=== PATIENT | male | born 1965 | race Caucasian/White ===

== ENCOUNTER 2016-09-22 11:30 | Inpatient (IN) ==
--- NOTE | 2016-09-21 21:20 | Discharge Summary ---
<Hillary Larson E - Last Filed: 09/21/16 21:28> Date of Encounter: 09/21/16 - Discharge Diagnosis (1) Arthritis of left hip Priority: Primary Status: Chronic (2) Atrial fibrillation Priority: Secondary Status: Chronic Qualifiers: Atrial fibrillation type: unspecified Qualified Code(s): I48.91 - Unspecified atrial fibrillation (3) Chronic pain Priority: Secondary Status: Chronic Comments: Patient takes [place] 10/325mg QID. Patient desires to trial Oxycodone 5-10mg Q6 hours PRN for post-operative pain. Patient to hold [place] while taking Oxycodone. Qualifiers: Chronic pain type: other chronic pain Qualified Code(s): G89.29 - Other chronic pain (4) COPD (chronic obstructive pulmonary disease) Priority: Secondary Status: Chronic Qualifiers: COPD type: unspecified COPD Qualified Code(s): J44.9 - Chronic obstructive pulmonary disease, unspecified (5) Tobacco use Priority: Secondary Status: Chronic (6) HTN (hypertension) Priority: Secondary Status: Chronic Qualifiers: Hypertension type: unspecified Qualified Code(s): I10 - Essential (primary ) hypertension (7) GERD (gastroesophageal reflux disease) Priority: Secondary Status: Chronic Qualifiers: Esophagitis presence: esophagitis presence not specified Qualified Code(s) : K21.9 - Gastro-esophageal reflux disease without esophagitis (8) BMI (body mass index) 20.0-29.9 Priority: Secondary Status: Chronic - Discharge Medications Home Medications: Aspirin Enteric Coated [Aspirin EC] 325 mg PO QAM #21 tablet. 09/21/16 [Rx] OxyCODONE Immed Rel [Roxicodone 5 MG] 5 - 10 mg PO Q6HR PRN #40 tablet 09/21/16 [Rx] Albuterol Sulfate [Ventolin Hfa] 2 puff IH Q4H PRN 09/22/16 [History] Amiodarone [Cordarone] 200 mg PO DAILY 09/22/16 [History] Amlodipine Besylate 10 mg PO DAILY 09/22/16 [History] Aspirin [Ecotrin] 325 mg PO DAILY 09/22/16 [History] Atorvastatin [Lipitor] 40 mg PO HS 09/22/16 [History] Budesonide/Formoterol 80/4.5 [Symbicort 80/4.5] 2 puff IH BID 09/22/16 [History ] Gabapentin [Neurontin] 800 mg PO TID 09/22/16 [History] HYDROcodone/Acet 10/325 mg [[place] 10-325 mg] 1 tab PO Q6H PRN 09/22/16 [History] Ipratropium/Albuterol Sulfate [Combivent Respimat Inhal [place]] 1 puff IH QID 02/27 [History] Metoprolol [Lopressor] 25 mg PO BID 09/22/16 [History] Omeprazole [PriLOSEC] 20 mg PO DAILY 09/22/16 [History] Allergies/Adverse Reactions: Allergies No Known Allergies Allergy (Verified 09/10/16 07:50) Primary care physician: Rick Pacheco - Patient Status Disposition: Home Health Service Condition: Good - Discharge Instructions Follow Up With: Rick Pacheco MD [Primary Care Provider] - - Hospital Course Hospital course: Mr. Villela is a 51 year old male - Time Spent with Patient Total time spent providing and/or coordinating discharge services: - VTE Documentation of Mechanical Device: Venous foot pump, device <Ifeanyi Middleton - Last Filed: 09/23/16 08:21> Date of Encounter: 09/23/16 Time of Encounter: 08:20 - Discharge Diagnosis (1) Arthritis of left hip Priority: Primary Status: Chronic (2) COPD (chronic obstructive pulmonary disease) Priority: Secondary Status: Chronic Qualifiers: COPD type: unspecified COPD Qualified Code(s): J44.9 - Chronic obstructive pulmonary disease, unspecified (3) Atrial fibrillation Priority: Secondary Status: Chronic Qualifiers: Atrial fibrillation type: unspecified Qualified Code(s): I48.91 - Unspecified atrial fibrillation (4) Tobacco use Priority: Secondary Status: Chronic (5) HTN (hypertension) Priority: Secondary Status: Chronic Qualifiers: Hypertension type: unspecified Qualified Code(s): I10 - Essential (primary ) hypertension (6) Alcohol dependence Priority: Secondary Status: Chronic Qualifiers: Substance use status: uncomplicated Qualified Code(s): F10.20 - Alcohol dependence, uncomplicated (7) GERD (gastroesophageal reflux disease) Priority: Secondary Status: Chronic Qualifiers: Esophagitis presence: esophagitis presence not specified Qualified Code(s) : K21.9 - Gastro-esophageal reflux disease without esophagitis (8) BMI (body mass index) 20.0-29.9 Priority: Secondary Status: Chronic (9) Status post total hip replacement, left Priority: Primary Status: Acute (10) Chronic pain Status: Chronic Qualifiers: Chronic pain type: other chronic pain Qualified Code(s): G89.29 - Other chronic pain Primary care physician: Rick Pacheco - Patient Status Functional capacity at discharge: uses cane/walker Overall status at discharge: patient is progressing back to baseline - Hospital Course Hospital course: Mr. Villela is a 51 year old male Status post total hip replacement The patient had an uneventful postoperative course. They received antibiotics and physical therapy and were discharged in stable condition. There will follow-up in the office in 2 weeks. Aspirin DVT prophylaxis - Time Spent with Patient Total time spent providing and/or coordinating discharge services:
--- NOTE | 2016-09-21 21:27 | Physician Discharge Referral ---
Home Health/Hosp Referral Info Transfer to: Home Health Attending Provider: Dr. Ifeanyi Middleton - Diagnosis (1) Status post total hip replacement, left Priority: Primary Status: Acute (2) Arthritis of left hip Priority: Secondary Status: Chronic (3) Atrial fibrillation Priority: Secondary Status: Chronic (4) Chronic pain Priority: Secondary Status: Chronic (5) COPD (chronic obstructive pulmonary disease) Priority: Secondary Status: Chronic (6) Tobacco use Priority: Secondary Status: Chronic (7) HTN (hypertension) Priority: Secondary Status: Chronic (8) GERD (gastroesophageal reflux disease) Priority: Secondary Status: Chronic (9) BMI (body mass index) 20.0-29.9 Priority: Secondary Status: Chronic - Respiratory Orders Smoking Cessation: Smoking cessation has been advised. For more information, call the [employer] Tobacco Quit Line at 2-746-IXWS-NOW. - Dressing/Wound Care Site: left hip Type of Dressing/Treatments w/Frequency: Opsite placed. Keep dressing intact until first follow up appointment. If > 50% saturated, notify office, remove dressing and place appropriate dressing back in place. Dressing is water resistant, not water-proof. OK to shower, but do not get dressing wet. - Diet/Nutrition Diet/Nutrition Orders: Regular - Activity Activity Orders: Ambulate, Chair, Walker - Services Needed Following services are medically necessary services: Nursing, Physical Therapy, Occupational Therapy Other Treatments: Total Hip replacement Precautions Apply cold therapy wrap 3-6x/day for 20 minutes at a time. Encourage ambulation throughout the day and incentive spirometer 10x/hour. Elevate affected extremity as tolerated. Brace: Wear hip abduction pillow when laying down or sleeping - Transfer Medications Home Medications: Aspirin Enteric Coated [Aspirin EC] 325 mg PO QAM #21 tablet. 09/21/16 [Rx] OxyCODONE Immed Rel [Roxicodone 5 MG] 5 - 10 mg PO Q6HR PRN #40 tablet 09/21/16 [Rx] Albuterol Sulfate [Ventolin Hfa] 2 puff IH Q4H PRN 09/22/16 [History] Amiodarone [Cordarone] 200 mg PO DAILY 09/22/16 [History] Amlodipine Besylate 10 mg PO DAILY 09/22/16 [History] Aspirin [Ecotrin] 325 mg PO DAILY 09/22/16 [History] Atorvastatin [Lipitor] 40 mg PO HS 09/22/16 [History] Budesonide/Formoterol 80/4.5 [Symbicort 80/4.5] 2 puff IH BID 09/22/16 [History ] Gabapentin [Neurontin] 800 mg PO TID 09/22/16 [History] HYDROcodone/Acet 10/325 mg [[place] 10-325 mg] 1 tab PO Q6H PRN 09/22/16 [History] Ipratropium/Albuterol Sulfate [Combivent Respimat Inhal [place]] 1 puff IH QID 02/27 [History] Metoprolol [Lopressor] 25 mg PO BID 09/22/16 [History] Omeprazole [PriLOSEC] 20 mg PO DAILY 09/22/16 [History] Allergies/Adverse Reactions: Allergies No Known Allergies Allergy (Verified 09/10/16 07:50) Certification: Further, I certify that my clinical findings support that this patient is homebound (i.e. absences from home require considerable and taxing effort and are for medical reasons or evangelical services or infrequently or short duration when for other reasons) because: Homebound Reason: Post-surgery restriction and or conditions limit ability to leave home Attestation: My signature below is to certify that this patient is under my care and that I, or nurse practitioner, or physician dental office assistant working with me, has a face-to- face encounter with this patient.
[2016-09-22] MEDS ORDERED: CeFAZolin Pre 2,000 MG/100 ML 2,000 MG/100 ML BAG IVPB ONE (11:49)
[2016-09-22] MEDS ORDERED: Albuterol 2.5 MG/3 ML NEBULIZER IH ONE (11:49)
[2016-09-22] MEDS ORDERED: Lidocaine -MPF 1% 2 ML VIAL ID ONE (11:49)
[2016-09-22] MEDS ORDERED: Ringers Solution, Lactated 1,000 ML IVC SCH ×2 (12:00→17:00)
[2016-09-22] MEDS ORDERED: Famotidine 20 MG/2 ML VIAL IVP ONE (12:12)
[2016-09-22] MEDS ORDERED: Gabapentin 300 MG CAPSULE PO ONE (12:13)
--- NOTE | 2016-09-22 12:19 | History & Physical Report ---
Date of Encounter: 09/22/16 Time of Encounter: 12:19 24 Hour HP Update - Instructions Instructions: If the History and Physical is less than 30 days old and was completed prior to A.M. admission and or procedure and has NOT been updated on calendar day of procedure please complete this update prior to performing procedure. - Update Patient reports changes in Medical Condition: No Changes in examination, assessment, or condition: No Changes in Medication: No Preop tests/diagnostics Reviewed: Yes Surgery Remains Indicated: Yes Consent for Planned Operative Procedure(s) Verified: Yes - Pre-Operative Checklist Preoperative Checklist Indicated: No Prophylactic Antibiotic Ordered: Yes Is VTE Prophylaxis Indicated?: Yes
--- NOTE | 2016-09-22 12:22 | Anesthesia Evaluation PreOp ---
Date of Encounter: 09/22/16 Time of Encounter: 12:20 - Past History Planned Operation: Left THR Cardiac History: HTN, Hyperlipidemia, Arrhythmia (Hx AFib treated with meds, took Cordarone today) Pulmonary History: Smoker, COPD TECHNOLOGIST DEVELOPMENT History: Denies Any Significant HX Other Medical History: Denies Any Significant HX, GERD Anesthesia History: No Prior Anesthetic Complications Alcohol Use: heavy, recent Drug use: none Medications and Allergies Aspirin Enteric Coated [Aspirin EC] 325 mg PO DAILY #21 tablet. 05/09/16 [Rx] OxyCODONE Immed Rel [Roxicodone 5 MG] 5 - 10 mg PO Q6HR PRN #40 tablet 05/09/16 [Rx] Aspirin Enteric Coated [Aspirin EC] 325 mg PO QAM #21 tablet. 09/21/16 [Rx] OxyCODONE Immed Rel [Roxicodone 5 MG] 5 - 10 mg PO Q6HR PRN #40 tablet 09/21/16 [Rx] Allergies No Known Allergies Allergy (Verified 09/10/16 07:50) - Meds/Allergy Pre-op Review Medications Reviewed: Yes Allergies Reviewed: Yes Beta Blockers on Current Med List: Yes (Took metoprolol today 0700) Anesthesia Results - Labs Laboratory Tests 09/10/16 09/10/16 08:13 08:13 Hgb 14.8 Hct 43.7 Plt Count 265 Sodium 139 Potassium 4.3 BUN 12 Creatinine 1.09 - Imaging EKG: report reviewed (SR) Anesthesia Exam O2 Sat Height 1.83 m Height 1.83 m Height 1.83 m Weight 99.79 kg Weight 99.79 kg Weight 99.79 kg O2 Sat by Pulse Oximetry 97 O2 Sat by Pulse Oximetry 97 O2 Sat by Pulse Oximetry 97 Vital Signs Temp Pulse Resp BP Pulse Ox 98.6 F 59 18 149/82 97 09/22/16 11:40 09/22/16 11:40 09/22/16 11:40 09/22/16 11:40 09/22/16 11:40 Height: 6'0 Weight: 220 lbs NPO (# of Hours): MN Pain Scale: 0 - HEENT Pupil (Motor): Pupils equal, EOMI Mallampati: III Teeth: Normal Oral Opening: Less than or equal to 3 - TECHNOLOGIST DEVELOPMENT LOC: Oriented TECHNOLOGIST DEVELOPMENT Motor: Normal RUE, Normal LUE, Normal RLE, Normal LLE, Normal Face TECHNOLOGIST DEVELOPMENT Sensory: Normal: RUE, LUE, RLE, LLE, Face - Cardiac Rhythm: Regular Murmur: None JVD: No Carotid Bruit: No - Pulmonary Breath Sounds: bilateral Clear Respiratory Effort: Symmetrical Anesthesia Assess/Plan ASA Score: 3 (HTN AFib COPD Gerd) Modified [place] Scale for Level of Consciousness: Cooperative, oriented, and tranquil Anesthetic Plan: General, Regional Monitoring Plan: Standard Monitors Recovery Plan: PACU (Discussed GA and RA, agrees to proceed)
[2016-09-22] MEDS ORDERED: *HR* FentaNYL (PF) 100 MCG/2 ML VIAL ONE (12:42)
[2016-09-22] MEDS ORDERED: *HR* Midazolam HCl 2 MG/2 ML VIAL ONE (12:42)
[2016-09-22] MEDS ORDERED: ROPIVACAINE HCL/PF 0.5% 30 ML VIAL ONE (12:43)
[2016-09-22] MEDS ORDERED: *HR* Propofol 200 MG/20 ML VIAL IVP ONE ×2 (12:45→13:27)
[2016-09-22] MEDS ORDERED: Ondansetron 4 MG/2 ML VIAL ONE (12:45)
[2016-09-22] MEDS ORDERED: Lidocaine -MPF 4% 5 ML AMPUL ONE (12:45)
[2016-09-22] MEDS ORDERED: Dexamethasone 4 MG/ML VIAL ONE (12:45)
[2016-09-22] MEDS ORDERED: *HR* Succinylcholine 200 MG/10 ML VIAL IVP ONE (12:45)
[2016-09-22] MEDS ORDERED: Lidocaine -MPF 2% 2 ML VIAL ONE (12:45)
[2016-09-22] MEDS ORDERED: Acetaminophen IV 1,000 MG/100 ML INFUS..BTL ONE (12:55)
--- NOTE | 2016-09-22 13:09 | Anesthesia Procedures ---
Date of Encounter: 09/22/16 Time of Encounter: 12:20 Procedures: Anesthesia - Nerve Block Procedure Date: 09/22/16 Time: 13:00 Pre-op Diagnosis: Left Hip OA Surgical Procedure: Left THR Checklist: Correct Patient Identifier Correct side: Left Blood Thinner: No Monitor Applied: EKG, BP, Pulse Oximetry Supplemental Oxygen via Nasal Cannula (L/min): 2 Sedation: Versed (mg): 2 Sedation: Fentanyl (mcg): 100 Indication: Post Op Analgesia Pre-op Neuro Deficits: No Block Type: Other (Fascia Iliaca) Catheter placed: No Depth at skin (cm): 2 Sterile Technique: Yes Ultrasound used: Yes Anatomy identified: Yes Visual spread of Local: Yes Neuro Stimulation: No Blood on Needle Aspiration: No Smooth Injection of Local: Yes Pain with Injection of Local: No Prep: Chlorhexadine Needle: 22 x 50 mm Stimuplex Local: Ropivacaine (0.25), Other (Dexamethasone 20 mg) Volume (cc): 60 Number of Attempts: 1 Complications: None/effective block Vitals: Vital Signs/O2 Sat/Glucose, Most Current Temp Pulse Resp BP Pulse Ox 09/22/16 12:48 57 18 153/77 97 09/22/16 11:50 98.6 F 59 18 149/82 97 09/22/16 11:40 98.6 F 59 18 149/82 97
[2016-09-22] MEDS ORDERED: *HR* Promethazine 25 MG/ML VIAL IVP PRN (13:40)
[2016-09-22] MEDS ORDERED: Propofol 500 MG/50 ML INFUS..BTL ONE (13:46)
--- NOTE | 2016-09-22 14:15 | Orthopedic Operative Note ---
Date of procedure: 09/22/16 Pre-op diagnosis: Left hip arthritis Post-op diagnosis: same Procedure: Procedure: Left Total Hip Replacment Estimated blood loss: 200 cc Hardware: Metal and polyethylene replacement. Biomet DM Cup: 58 G7 fin cup Femoral size 15 echo full profile lateralized stem Head: +6 head with Milagro Procedural Notes: Degenerative changes grade 4 femoral head acetabular socket. Operative procedure: The patient was brought to the operating room and placed on the operating room table. After general anesthesia was administered the patient was placed in the lateral decubitus position with the operative leg up. All pressure points were padded appropriately and the head was stabilized in the neutral position. The operative extremity was prepped and draped in the sterile surgical fashion patient received IV antibiotic prior to skin incision. A standard posterior approach is made to the operative hip, the incision was made through the skin and subcutaneous tissue hemostasis was obtained with Bovie cautery. Using careful sharp dissection the fascia was identified and incised exposing the external rotators. The external rotators were released off the greater trochanter and tagged with #2 FiberWire suture. The capsule was T'd open and the hip was brought into internal rotation. Patient noted to have grade 4 arthritic changes femoral head. The femoral neck cut was made at the appropriate level. An anterior capsulotomy was performed for the anterior retractor. Soft tissues removed from the acetabulum. Patient noted to have grade 4 arthritic changes acetabulum. Acetabulum was first reamed medially, and then reamed in 15 degrees of anteversion and 45 degrees off the horizontal. It was reamed up to the appropriate size 58 The appropriate-sized 58 acetabular cup was impacted in place in 15 degrees of anteversion and 45 degrees off the horizontal. This had good fit and fixation. The hip was brought back in to internal rotation and prepared with the steam box operator followed by the canal finder followed by broaching process in 20 degrees anteversion. It was broached up to the appropriate size 15 The femoral implant was impacted in place in 20 degrees of anteversion. Trial reduction found the hip to be stable with +6 head and Milagro. The trials were removed and the real implants were impacted in place. The hip was reduced, patient had apparent equal leg lengths. The hip had excellent stability with forward flexion to 90 degrees adduction of 30 degrees and internal rotation of 60 degrees. The hip had no shuck. The hips after 2 minutes with a Betadine saline solution. It was irrigated out with 2 L of pulse irrigation. The HIGINIO Larson close the hip. Fascia was closed with a running #2 PDS suture. The deep tissue was irrigated and closed deep with #1 PDS suture superficially with 0 PDS suture and skin was closed with Dermabond and skin mary. The patient was placed in a sterile dressing and abduction pillow. The patient was extubated and transferred to the recovery room in stable condition. Anesthesia: GETA Surgeon: Ifeanyi Middleton Condition: stable Disposition: PACU
[2016-09-22] MEDS ORDERED: *HR* HYDROmorphone 2 MG/ML SYRINGE ONE (14:26)
[2016-09-22] MEDS ORDERED: EPHEDrine 50 MG/ML VIAL ONE (14:37)
[2016-09-22] MEDS: *HR* HYDROmorphone (PF) 1 MG/ML SYRINGE IVP PRN ×6 (15:04→19:31)
[2016-09-22 15:30] LABS: Hematocrit 42.4 % (37.5-50.1); Hemoglobin 13.9 g/dL (12.9-16.9)
--- NOTE | 2016-09-22 15:40 | Anesthesia Evaluation Post Op ---
Date of Encounter: 09/22/16 Time of Encounter: 15:39 - Vital Signs Vital Signs: Vital Signs - Last 8 Hours Temp Pulse Resp BP Pulse Ox 09/22/16 15:34 57 14 149/93 97 09/22/16 15:24 97.7 F 54 16 160/102 94 09/22/16 15:14 54 16 155/101 95 09/22/16 15:04 55 16 138/80 95 09/22/16 14:54 97.3 F L 53 20 117/70 100 09/22/16 13:06 55 16 148/87 98 09/22/16 12:48 57 18 153/77 97 09/22/16 11:50 98.6 F 59 18 149/82 97 09/22/16 11:40 98.6 F 59 18 149/82 97 Intake and Output 09/21/16 09/22/16 09/22/16 23:59 07:59 15:59 Output Total 200 / 200 Balance -200 / -200 Output: Estimated Blood Loss 200 / 200 Other: Weight 99.79 kg Patient Weight 09/22/16 23:59 Weight 99.79 kg - Lungs Lungs: Clear Ascult./Percussion - Airway Airway: Non-obstructed - Cardiovascular Regular Rate, Baseline Rhythm - Mental Status Mental Status: Alert & Oriented, Answers Appropriately - Pain Pain Scale: 0 Pain Scale used: Numeric (1 - 10) - Nausea Vomiting Nausea Vomiting: Not Present - Hydration Hydration: Tolerates oral liquids - Discharge PostOp Status: Transfer Patient to floor
[2016-09-22] MEDS ORDERED: Temazepam 15 MG CAPSULE PO PRN (17:00)
[2016-09-22] MEDS ORDERED: *HR* OxyCODONE Immed Rel 5 MG TABLET PO PRN (17:00)
[2016-09-22] MEDS ORDERED: ceFAZolin 2,000 MG in D5% in Water 100 ML IVPB SCH (17:00)
[2016-09-22] MEDS ORDERED: Naloxone 0.4 MG/ML INJ IVP PRN (17:00)
[2016-09-22] MEDS ORDERED: MOM Conc 10 ML UD.LIQ PO PRN (17:00)
[2016-09-22] MEDS ORDERED: Sennosides 8.6 MG TABLET PO PRN (17:00)
[2016-09-22] MEDS ORDERED: Ondansetron 4 MG/2 ML VIAL IVP PRN (17:00)
[2016-09-22] MEDS: *HR* Enoxaparin 30 MG/0.3 ML SYRINGE SQ SCH (17:36)
[2016-09-22] MEDS: Ascorbic Acid 500 MG TABLET PO SCH (17:36)
[2016-09-22] MEDS ORDERED: *HR* Enoxaparin 30 MG/0.3 ML SYRINGE SQ SCH (18:00)
[2016-09-22] MEDS: *HR* OxyCODONE Immed Rel 5 MG TABLET PO PRN (21:49)
[2016-09-22] MEDS: ceFAZolin 2,000 MG in D5% in Water 100 ML IVPB SCH (21:50)
[2016-09-22] MEDS: Ipratropium 1 PUFF INHALER IH SCH (22:50)
[2016-09-23] MEDS: *HR* HYDROmorphone (PF) 1 MG/ML SYRINGE IVP PRN ×2 (00:20→04:10)
[2016-09-23] MEDS: *HR* OxyCODONE Immed Rel 5 MG TABLET PO PRN ×3 (02:00→10:49)
[2016-09-23] MEDS: Ipratropium 1 PUFF INHALER IH SCH ×2 (04:28→10:36)
[2016-09-23 06:13] LABS: Hematocrit 38.7 % (37.5-50.1); Hemoglobin 12.6 g/dL (12.9-16.9)
[2016-09-23] MEDS: ceFAZolin 2,000 MG in D5% in Water 100 ML IVPB SCH (06:17)
[2016-09-23] MEDS: *HR* Enoxaparin 30 MG/0.3 ML SYRINGE SQ SCH (06:18)
[2016-09-23 06:49] LABS: BUN/Creatinine Ratio 12 (6-26); Blood Urea Nitrogen 11 mg/dL (8-26); Calcium 8.7 mg/dL (8.6-10.8); Carbon Dioxide 24 mEq/L (19-29); Chloride 104 mEq/L (98-109); Glucose 233 mg/dL (70-99); Osmolality,Calculated 285 (280-300); Potassium 4.2 mEq/L (3.5-4.5); Sodium 134 mEq/L (136-145); eGFR For African Americans > 60 (> 60); eGFR For Non-African Americans > 60 (> 60)
[2016-09-23 07:15] VITALS: BP 116/75
[2016-09-23] MEDS: Ascorbic Acid 500 MG TABLET PO SCH (07:57)
--- NOTE | 2016-09-23 08:22 | Orthopedics Progress Note ---
Date of Encounter: 09/23/16 Time of Encounter: 08:21 - Assessment and Plan (1) Arthritis of left hip Current Visit: No Status: Chronic (2) COPD (chronic obstructive pulmonary disease) Current Visit: No Status: Chronic Qualifiers: COPD type: unspecified COPD Qualified Code(s): J44.9 - Chronic obstructive pulmonary disease, unspecified (3) Atrial fibrillation Current Visit: No Status: Chronic Qualifiers: Atrial fibrillation type: unspecified Qualified Code(s): I48.91 - Unspecified atrial fibrillation (4) Tobacco use Current Visit: No Status: Chronic (5) HTN (hypertension) Current Visit: No Status: Chronic Qualifiers: Hypertension type: unspecified Qualified Code(s): I10 - Essential (primary ) hypertension (6) Alcohol dependence Current Visit: No Status: Chronic Qualifiers: Substance use status: uncomplicated Qualified Code(s): F10.20 - Alcohol dependence, uncomplicated (7) GERD (gastroesophageal reflux disease) Current Visit: Yes Status: Chronic Qualifiers: Esophagitis presence: esophagitis presence not specified Qualified Code(s) : K21.9 - Gastro-esophageal reflux disease without esophagitis (8) BMI (body mass index) 20.0-29.9 Current Visit: Yes Status: Chronic (9) Status post total hip replacement, left Current Visit: Yes Status: Acute (10) Chronic pain Current Visit: Yes Status: Chronic Qualifiers: Chronic pain type: other chronic pain Qualified Code(s): G89.29 - Other chronic pain Subjective Interval history: Patient was seen this morning doing well without complaints. Afebrile vital signs stable. Operative extremity: Neurovascularly intact Dressing clean dry and intact Calves nontender Assessment and plan: Continue with postoperative care Hematocrit 38 stable for discharge Objective Vital signs: Vital Signs Temp Pulse Resp BP Pulse Ox 09/23/16 07:11 98.2 F 69 16 116/75 95 09/23/16 04:28 18 91 09/23/16 00:32 97.5 F L 61 18 138/87 93 09/22/16 22:52 16 93 09/22/16 21:36 98.2 F 59 16 132/75 93 09/22/16 18:29 97.8 F 63 16 134/83 96 09/22/16 17:27 97.6 F 57 16 149/88 98 09/22/16 16:45 97.6 F 60 16 150/87 96 09/22/16 16:41 96 09/22/16 16:15 97.5 F L 60 16 151/92 95 09/22/16 15:44 58 12 151/96 95 09/22/16 15:34 57 14 149/93 97 09/22/16 15:24 97.7 F 54 16 160/102 94 09/22/16 15:14 54 16 155/101 95 09/22/16 15:04 55 16 138/80 95 09/22/16 14:54 97.3 F L 53 20 117/70 100 09/22/16 13:06 55 16 148/87 98 09/22/16 12:48 57 18 153/77 97 09/22/16 11:50 98.6 F 59 18 149/82 97 09/22/16 11:40 98.6 F 59 18 149/82 97 Intake and Output 09/22/16 09/23/16 09/23/16 23:59 07:59 15:59 Intake Total 100 / 100 Balance 100 / 100 Intake: IV Fluids 100 / 100 Ancef 2,000 MG In 100 / 100 Dextrose 5% 100 ML @ 200 mls/hr IVPB Q8H [facility] Rx#: [id number] Other: Meal Dinner Percent of Meal Consumed 50% - Labs CBC & BMP: 09/23/16 04:48 09/23/16 04:48 Labs: Abnormal lab results Hgb 12.6 g/dL (12.9-16.9) L 09/23/16 04:48 Sodium 134 mEq/L (136-145) L 09/23/16 04:48 Glucose 233 mg/dL (70-99) H 09/23/16 04:48 - VTE Documentation of Mechanical Device: Venous foot pump, device Consult Discharge Plan - Plan Referrals: Rick Pacheco MD [Primary Care Provider] -
[2016-09-23] MEDS ORDERED: Multivit/Ca/Min/Fe/FA 1 TAB TABLET PO SCH (09:00)
[2016-09-23] MEDS ORDERED: *HR* Amiodarone 200 MG TABLET PO SCH (09:00)
[2016-09-23] MEDS ORDERED: Gabapentin 400 MG CAPSULE PO SCH (09:00)
[2016-09-23] MEDS ORDERED: amLODIPine 5 MG TABLET PO SCH (09:00)
[2016-09-23] MEDS ORDERED: NON-FORMULARY MEDICATION 1 EACH EACH (Ipratropium/Albuterol Sulfate [Combivent Respimat In IH SCH (09:00)
[2016-09-23] MEDS ORDERED: Budesonide/Formoterol 80/4.5 MDI IH SCH (10:00)
== END 2016-09-23 13:38 | disposition home health service (06) | DRG 470 ==
LOC: SAMDAY 11:30 → 3NENU 16:14
PROVIDERS: ADMIT Orthopaedic Surgery; ATTEND Orthopaedic Surgery